=== PATIENT | female | born 1990 | race Two or more races ===

== ENCOUNTER 2017-08-21 07:27 | Emergency (ER) | payer BC ==
--- NOTE | 2017-08-21 08:06 | PDOC ---
History of Present Illness - General Chief Complaint: Vomiting/Diarrhea Stated Complaint: VOMITING Time Seen by Provider: 08/21/17 08:01 History Source: Patient Exam Limitations: No Limitations - History of Present Illness Initial Comments: 08/21/17 09:00 Patient is a 27-year-old female with no past medical history who presents emergency department today with nausea vomiting and diarrhea since 1 AM. Patient states that she woke up not feeling well. Pt. states that she ate a new chicken dish on Monday night that one of her friends brought over. Her significant other was also at the event but did not eat the chicken dish and has no symptoms. Denies recent antibiotic use, sick contacts, recent travel. Patient states that she [facility] and has not had a menstrual cycle since. Admits to upper abdominal pain and headache. Denies fevers, chills, sore throat, ear pain, cough, runny nose, chest pain, the, urgency, dysuria, hematuria. Patient last ate dinner last night. Past History - Travel Traveled outside of the country in the last 30 days: No Close contact w/someone who was outside of country & ill: No - Past Medical History Allergies/Adverse Reactions: Allergies Allergy/AdvReac Type Severity Reaction Status Date / Time No Known Allergies Allergy Verified 08/21/17 07:29 Home Medications: Ambulatory Orders Levothyroxine [Synthroid -] 125 mcg PO DAILY #30 tablet 07/19/17 Ondansetron [Zofran Odt -] 4 mg SL TID #10 od.tablet 08/21/17 CVA: No COPD: No Thyroid Disease: Yes - Suicide/Smoking/Psychosocial Hx Smoking History: Never smoked Have you smoked in the past 12 months: No Information on smoking cessation initiated: No Hx Alcohol Use: Yes (SOCIAL) Drug/Substance Use Hx: No Substance Use Type: None Review of Systems - Review of Systems Able to Perform ROS?: Yes Is the patient limited Iraqi proficient: No Constitutional: No: Chills, Fever, Night Sweats, Weakness HEENTM: No: Recent change in vision, Ear Pain, Nose Congestion, Throat Pain, Throat Swelling Respiratory: No: Cough, Shortness of Breath, Wheezing Cardiac (ROS): No: Chest Pain, Irregular Heart Rate, Palpitations, Syncope ABD/GI: Yes: Diarrhea, Nausea, Vomiting, Other (abdominal pain) : No: Burning, Dysuria, Frequency, Hematuria Neurological: Yes: Headache All Other Systems: Reviewed and Negative *Physical Exam - Vital Signs Last Vital Signs Temp Pulse Resp BP Pulse Ox 98.8 F 106 H 18 121/61 100 08/21/17 07:29 08/21/17 07:29 08/21/17 07:29 08/21/17 07:29 08/21/17 07:29 - Physical Exam Comments: 08/21/17 08:59 GENERAL: Well developed, well nourished. Awake and alert x3. No acute distress sitting on exam bed. HEENT: Normocephalic, atraumatic. PERRLA, EOMI. No conjunctival pallor. Sclera are non- icteric. Moist mucous membranes. Oropharynx is clear. NECK: Supple. Full ROM. No JVD. Carotid pulses 2+ and symmetric, without bruits. No thyromegaly. No lymphadenopathy. CARDIOVASCULAR: Regular rate and rhythm. No murmurs, rubs, or gallops. Distal pulses are 2+ and symmetric. PULMONARY: No evidence of respiratory distress. Lungs clear to auscultation bilaterally. No wheezing, rales or rhonchi. ABDOMINAL: TTP of epigastric region. Soft. Non-distended. No rebound or guarding. No organomegaly. Normoactive bowel sounds. (-) rovsing, obturator, psoas signs. (- ) Stevens's sign MUSCULOSKELETAL Normal range of motion at all joints. No bony deformities or tenderness. No CVA tenderness. EXTREMITIES: No cyanosis. No clubbing. No edema. No calf tenderness. SKIN: Warm and dry. Normal capillary refill. No rashes. No jaundice. NEUROLOGICAL: Alert, awake, appropriate. Cranial nerves 2-12 intact. No deficits to light touch and temperature in face, upper extremities and lower extremities. No motor deficits in the in face, upper extremities and lower extremities. Normoreflexic in the upper and lower extremities. Normal speech. Toes are down- going bilaterally. Gait is normal without ataxia. PSYCHIATRIC: Cooperative. Good eye contact. Appropriate mood and affect. ED Treatment Course - LABORATORY CBC & Chemistry Diagram: 08/21/17 10:12 08/21/17 09:05 Medical Decision Making - Medical Decision Making 08/21/17 09:02 Patient is a 27-year-old female with no past medical history who presents to the emergency department today with nausea vomiting and diarrhea since 1 AM. Hx positive for eating a chicken dish on Monday night. No red flags on exam. Stevens sign is negative. Given the onset of symptoms and the patient is in good health, this is most likely a viral stomach illness. However differential diagnosis included but not limited to , UTI. Less likely pancreatitis, cholecystitis. 1.CBC, CMP, lipase, PT/INR, UA, UC, urine 2.IV fluids, Zofran 3.reevaluate 08/21/17 10:57 Labs show elevated WBC with L shift. Lipase, bilirubin normal. Pt. afebrile in the department. most likely a bacterial gastroenteritis. Pt. reports nausea and pain better, but still with some nausea. Will give reglan at this time. 08/21/17 12:18 Pt states abdominal pain is gone after reglan. Tolerating PO. Will d/c pt at this time. *DC/Admit/Observation/Transfer Diagnosis at time of Disposition: Gastroenteritis - Discharge Dispostion Disposition: HOME Condition at time of disposition: Stable Admit: No - Referrals Referrals: Arnaldo Centeno MD [Staff Physician] - - Patient Instructions Printed Discharge Instructions: DI for Viral Gastroenteritis -- Adult Additional Instructions: You have a viral stomach infection. This should get better on its own in the next 24-48 hours. Please drink plenty of fluids. Eat a bland diet, including toast, plain rice, apple sauce, and bananas. You were prescribed zofran. You may take one pill every 8 hours as needed for nausea. Please follow up with your primary care doctor within the week. Return to the ED if your abdominal pain, nausea and vomiting get worse, if you feel light headed, dizzy or if you have any changes in your symptoms. - Post Discharge Activity Forms/Work/School Notes: Back to Work
[2017-08-21 08:16] VITALS: TEMP 98.8; BMI 24.7
[2017-08-21] MEDS ORDERED: ONDANSETRON 4 MG/2 ML VIAL IVPUSH ONE (08:20)
[2017-08-21] MEDS ORDERED: SODIUM CHLORIDE 1,000 ML IV STA (08:20)
[2017-08-21] MEDS ORDERED: ONDANSETRON 4 MG/2 ML VIAL ONE (08:27)
[2017-08-21 09:41] LABS: URINE APPEARANCE SLCLOUDY; URINE BILIRUBIN NEGATIVE (NEGATIVE); URINE BLOOD NEGATIVE (NEGATIVE); URINE COLOR YELLOW; URINE GLUCOSE (UA) NEGATIVE (NEGATIVE); URINE KETONE 2+ (NEGATIVE); URINE LEUK ESTERASE NEGATIVE (NEGATIVE); URINE NITRITE NEGATIVE (NEGATIVE); URINE PROTEIN NEGATIVE (NEGATIVE); URINE UROBILINOGEN NEGATIVE mg/dL (0.2-1.0)
[2017-08-21 09:45] LABS: ALBUMIN 3.7 g/dl (3.4-5.0); ALK PHOS 69 U/L (45-117); ANION GAP 6 (8-16); BILIRUBIN,TOTAL 0.6 mg/dL (0.2-1.0); CALCIUM 7.8 mg/dL (8.5-10.1); CO2 25 mmol/L (21-32); CREATININE 0.7 mg/dL (0.55-1.02); GLUCOSE,RANDOM 108 mg/dL (74-106); SGOT/AST 14 U/L (15-37); SGPT/ALT 21 U/L (12-78); TOT PROT 7.2 g/dl (6.4-8.2)
[2017-08-21 09:50] LABS: INR 1.15 (0.82-1.09)
[2017-08-21] MEDS ORDERED: KETOROLAC TROMETHAMINE 30 MG/1 ML VIAL IVPUSH ONE (10:16)
[2017-08-21 10:21] LABS: BASOPHIL 0.1 % (0-2.0); EOSINOPHIL 0.3 % (0-4.5); MCH 28.4 pg (25.7-33.7); MCHC 32.2 g/dl (32.0-36.0); MEAN CELL VOLUME 88.1 fl (80-96); MEAN PLT VOLUME 7.8 fl (7.5-11.1); NEUTROPHILS 96.1 % (42.8-82.8); PLATELET COUNT 282 K/MM3 (134-434); RDW 13.2 % (11.6-15.6); WHITE BLOOD COUNT 15.2 K/mm3 (4.0-10.0)
--- NOTE | 2017-08-21 10:27 | PDOC ---
*Physical Exam - Vital Signs Last Vital Signs Temp Pulse Resp BP Pulse Ox 98.8 F 106 H 18 121/61 100 08/21/17 07:29 08/21/17 07:29 08/21/17 07:29 08/21/17 07:29 08/21/17 07:29 ED Treatment Course - LABORATORY CBC & Chemistry Diagram: 08/21/17 10:12 08/21/17 09:05 - ADDITIONAL ORDERS Additional order review: Laboratory Results 08/21/17 08/21/17 08/21/17 09:05 09:05 09:05 PT with INR 13.00 H INR 1.15 H Sodium 143 Potassium 4.3 Chloride 112 H Carbon Dioxide 25 Anion Gap 6 L BUN 12 Creatinine 0.7 Creat Clearance w eGFR > 60 Random Glucose 108 H D Calcium 7.8 L Total Bilirubin 0.6 AST 14 L ALT 21 Alkaline Phosphatase 69 Total Protein 7.2 Albumin 3.7 Lipase 141 Urine Color Urine Appearance Urine pH Ur Specific [place] Urine Protein Urine Glucose (UA) Urine Ketones Urine Blood Urine Nitrite Urine Bilirubin Urine Urobilinogen Urine HCG, Qual 08/21/17 08/21/17 08:42 08:42 PT with INR INR Sodium Potassium Chloride Carbon Dioxide Anion Gap BUN Creatinine Creat Clearance w eGFR Random Glucose Calcium Total Bilirubin AST ALT Alkaline Phosphatase Total Protein Albumin Lipase Urine Color Yellow Urine Appearance Slcloudy Urine pH 5.0 Ur Specific [place] 1.032 Urine Protein Negative Urine Glucose (UA) Negative Urine Ketones 2+ H Urine Blood Negative Urine Nitrite Negative Urine Bilirubin Negative Urine Urobilinogen Negative Urine HCG, Qual Negative - Medications Given in the ED: ED Medications Discontinued Medications Generic Name Dose Route Start Last Admin Trade Name Martinezq PRN Reason Stop Dose Admin Sodium Chloride 1,000 mls @ 1,000 mls/hr 08/21/17 08:20 08/21/17 08:33 Normal Saline - IV 08/21/17 09:19 1,000 mls/hr ASDIR STA Administration Ondansetron HCl 4 mg 08/21/17 08:20 08/21/17 08:33 Zofran Injection IVPUSH 08/21/17 08:21 4 mg ONCE ONE Administration Medical Decision Making - Medical Decision Making 08/21/17 10:26 I reviewed the case of the mid-level practitioner and was available for consultation while in the emergency department *DC/Admit/Observation/Transfer Diagnosis at time of Disposition: Gastroenteritis - Discharge Dispostion Disposition: HOME Condition at time of disposition: Stable - Referrals Referrals: Arnaldo Centeno MD [Staff Physician] - - Patient Instructions Printed Discharge Instructions: DI for Viral Gastroenteritis -- Adult Additional Instructions: You have a viral stomach infection. This should get better on its own in the next 24-48 hours. Please drink plenty of fluids. Eat a bland diet, including toast, plain rice, apple sauce, and bananas. You were prescribed zofran. You may take one pill every 8 hours as needed for nausea. Please follow up with your primary care doctor within the week. Return to the ED if your abdominal pain, nausea and vomiting get worse, if you feel light headed, dizzy or if you have any changes in your symptoms. - Post Discharge Activity Forms/Work/School Notes: Back to Work
[2017-08-21] MEDS ORDERED: KETOROLAC TROMETHAMINE 30 MG/1 ML VIAL ONE (10:28)
[2017-08-21] MEDS ORDERED: METOCLOPRAMIDE HCL INJECTION 10 MG/2 ML VIAL IVPUSH ONE (10:46)
[2017-08-21] MEDS ORDERED: METOCLOPRAMIDE HCL INJECTION 10 MG/2 ML VIAL ONE ×2 (10:54→10:55)
[2017-08-21 12:35] VITALS: BP 110/68; PULSE 94
[2017-08-21 18:49] LABS: URINE LEUK ESTERASE NEGATIVE (NEGATIVE)
== END 2017-08-21 12:35 | disposition home or self-care (01) ==
LOC: JER 07:27
PROC: 3E033GC Introduction of Other Therapeutic Substance into Peripheral Vein, Percutaneous Approach (ICD-10-PCS; principal; 2017-08-21)
PROC: 3E0337Z Introduction of Electrolytic and Water Balance Substance into Peripheral Vein, Percutaneous Approach (ICD-10-PCS; 2017-08-21)
PROC: 3E0333Z Introduction of Anti-inflammatory into Peripheral Vein, Percutaneous Approach (ICD-10-PCS; 2017-08-21)
DX: K52.9 Noninfective gastroenteritis and colitis, unspecified (principal); E07.9 Disorder of thyroid, unspecified
CPT/HCPCS: 36415; 80053; 81003; 83690; 84703; 85025; 85610; 87086; 99283-25

== ENCOUNTER 2019-03-04 00:03 | Emergency (ER) | payer BC ==
[2019-03-04 00:38] VITALS: BP 99/60; PULSE 74; TEMP 98.6; BMI 26.5
--- NOTE | 2019-03-04 03:35 | PDOC ---
History of Present Illness - General Chief Complaint: Pain Stated Complaint: ABDOMINAL PAIN Time Seen by Provider: 03/04/19 03:21 History Source: Patient Exam Limitations: No Limitations - History of Present Illness Initial Comments: 03/04/19 03:29 Patient is a 29 year old female with h/o hypothyroid c/o upper abd pain x 2 weeks. Patient points to the epigastrium States the pain is in the epigastrium and is described as a continuous tightness 7/10, but get sharp with turning to the side, and pain radiates to the sides. Denies nausea, vomiting, dysuria. Took Prilosec with out relief of symptoms. Also c/o constipation x 4 days, has left flank pain and strains to go but nothing come out. Took no meds for the pain or the constipation. LMP 01/28/19 PSOCHX: occ etoh, neg cig, drugs ALL: NKDA GENERAL/CONSTITUTIONAL: No fever or chills. No weakness. No weight change.HEAD, EYES, EARS, NOSE AND THROAT: No change in vision. No ear pain or discharge. No sore throat. CARDIOVASCULAR: No chest pain or shortness of breath. RESPIRATORY: No cough, wheezing, or hemoptysis. GASTROINTESTINAL: No nausea, vomiting, diarrhea or constipation. No rectal bleeding. GENITOURINARY: No dysuria, frequency, or change in urination. MUSCULOSKELETAL: No joint or muscle swelling or pain. No neck or back pain. SKIN AND BREASTS: No rash or easy bruising. NEUROLOGIC: No headache, vertigo, loss of consciousness, or loss of sensation. PSYCHIATRIC: No depression or anxiety. ENDOCRINE: No increased thirst. No abnormal weight change. HEMATOLOGIC/LYMPHATIC: No anemia, easy bleeding, or history of blood clots. ALLERGIC/IMMUNOLOGIC: No hives or skin allergy. No latex allergy. GENERAL: The patient is awake, alert, and fully oriented, in mild distress. HEAD: Normal with no signs of trauma. EYES: Pupils equal, round and reactive to light, extraocular movements intact, sclera anicteric, conjunctiva clear. ENT: Ears normal, nares patent, oropharynx clear without exudates. Moist mucous membranes. NECK: Normal range of motion, supple without lymphadenopathy, JVD, or masses. LUNGS: Breath sounds equal, clear to auscultation bilaterally. No wheezes, and no crackles. HEART: Regular rate and rhythm, normal S1 and S2 without murmur, rub. ABDOMEN: Soft, (+) tenderness to the epigastrium > RUQ& LUQ, normoactive bowel sounds. No guarding, no rebound. No masses. EXTREMITIES: Normal range of motion, no edema. No clubbing or cyanosis. No cords, erythema, or tenderness. NEUROLOGICAL: Cranial nerves II through XII grossly intact. Normal speech, normal gait. PSYCH: Normal mood, normal affect. SKIN: Warm, Dry, normal turgor, no rashes or lesions noted. Past History - Past Medical History Allergies/Adverse Reactions: Allergies Allergy/AdvReac Type Severity Reaction Status Date / Time No Known Allergies Allergy Verified 03/04/19 00:38 Home Medications: Ambulatory Orders Levothyroxine [Synthroid -] 125 mcg PO DAILY #30 tablet 07/19/17 Ondansetron [Zofran Odt -] 4 mg SL TID #10 od.tablet 08/21/17 predniSONE [Deltasone -] 40 mg PO DAILY #6 tablet 12/15/17 CVA: No COPD: No Thyroid Disease: Yes - Immunization History Immunization Up to Date: Yes - Suicide/Smoking/Psychosocial Hx Smoking History: Never smoked Have you smoked in the past 12 months: No Hx Alcohol Use: No Drug/Substance Use Hx: No Substance Use Type: None *Physical Exam - Vital Signs Last Vital Signs Temp Pulse Resp BP Pulse Ox 98.6 F 74 18 99/60 99 03/04/19 00:36 03/04/19 00:36 03/04/19 00:36 03/04/19 00:36 03/04/19 00:36 ED Treatment Course - LABORATORY CBC & Chemistry Diagram: 03/04/19 03:49 03/04/19 03:49 Medical Decision Making - Medical Decision Making 03/04/19 03:29 Patient is a 29 year old female with h/o hypothyroid c/o upper abd pain x 2. States the pain is a tightness 7/10, constant with get sharp with turning to the side. Denies nausea, vomiting, dysuria. Took Prilosec with out relief of symptoms. Also c/o constipation x 4 days, has left flank pain and strains to go but nothing come out. Took no meds for the pain or the constipation. DDX: Cholecystitis/cholelithiasis, pancreatitis, gastritis Will send labs CBC and basic liver enzymes and pancreatic enzymes Pepcid, Toradol, Side ultrasound done which shows ? Gallbladder wall thickening, sludge. Will wait for chemistry. 03/04/19 05:31 Laboratory Tests 03/04/19 03/04/19 03:49 03:49 WBC 8.8 Hgb 13.6 Hct 41.5 Plt Count 285 Sodium 138 Potassium 4.5 Chloride 106 Carbon Dioxide 27 Anion Gap 5 L BUN 13.8 Creatinine 0.8 Random Glucose 89 Total Bilirubin 0.4 AST 18 ALT 25 Alkaline Phosphatase 88 Lipase 441 H 03/04/19 05:34 Pancreatic enzymes noted to be elevated will send patient for a ultrasound of the abdomen rule out pancreatitis, cholecystitis, pancreatic pseudocyst With endorsed to the day team pending ultrasound. *DC/Admit/Observation/Transfer Diagnosis at time of Disposition: Abdominal pain Qualifiers: Abdominal location: unspecified location Qualified Code(s): R10.9 - Unspecified abdominal pain - Discharge Dispostion Condition at time of disposition: Stable - Referrals - Patient Instructions - Post Discharge Activity
[2019-03-04] MEDS ORDERED: FAMOTIDINE 20 MG/50 ML IVPB 20 MG/50 ML MG IVPB ONE ×2 (03:40→03:50)
[2019-03-04] MEDS ORDERED: SODIUM CHLORIDE 0.9% 500 ML INFUS.BAG IV ONE (03:47)
[2019-03-04 04:51] LABS: HEMATOCRIT 41.5 % (32.4-45.2); HEMOGLOBIN 13.6 GM/dL (10.7-15.3); LYMPH % 24.2 % (8-40); MCH 29.5 pg (25.7-33.7); MCHC 32.8 g/dl (32.0-36.0); MEAN PLT VOLUME 8.6 fl (7.5-11.1); MONO % 9.7 % (3.8-10.2); NEUT % 63.1 % (42.8-82.8); PLATELET COUNT 285 K/MM3 (134-434); RBC 4.61 M/mm3 (3.60-5.2); RDW 15.1 % (11.6-15.6); WHITE BLOOD COUNT 8.8 K/mm3 (4.0-10.0)
[2019-03-04] MEDS ORDERED: KETOROLAC TROMETHAMINE 30 MG/1 ML VIAL IVPUSH ONE (05:15)
[2019-03-04 05:22] LABS: BILIRUBIN,TOTAL 0.4 mg/dL (0.2-1); BLOOD UREA NITROGEN 13.8 mg/dL (7-18); CALCIUM 8.8 mg/dL (8.5-10.1); CREATININE 0.8 mg/dL (0.55-1.3); POTASSIUM 4.5 mmol/L (3.5-5.1); TOT PROT 8.2 g/dl (6.4-8.2)
[2019-03-04 05:27] LABS: PH,URINE 5.5 (5.0-8.0); URINE APPEARANCE CLEAR; URINE BILIRUBIN NEGATIVE (NEGATIVE); URINE COLOR YELLOW; URINE GLUCOSE (UA) NEGATIVE (NEGATIVE); URINE KETONE NEGATIVE (NEGATIVE); URINE LEUK ESTERASE NEGATIVE (NEGATIVE); URINE NITRITE NEGATIVE (NEGATIVE); URINE PROTEIN NEGATIVE (NEGATIVE); URINE UROBILINOGEN 0.2 mg/dL (0.2-1.0)
[2019-03-04 05:32] LABS: HCG,QUALITATIVE URINE Negative
[2019-03-04] MEDS ORDERED: KETOROLAC TROMETHAMINE 30 MG/1 ML VIAL ONE (05:37)
--- NOTE | 2019-03-04 07:36 | PDOC ---
*Physical Exam - Vital Signs Last Vital Signs Temp Pulse Resp BP Pulse Ox 98.6 F 74 18 99/60 99 03/04/19 00:36 03/04/19 00:36 03/04/19 00:36 03/04/19 00:36 03/04/19 00:36 - Physical Exam General Appearance: Yes: Appropriately Dressed. No: Apparent Distress HEENT: positive: Normal Voice Neck: positive: Supple Respiratory/Chest: negative: Respiratory Distress Gastrointestinal/Abdominal: positive: Normal Bowel Sounds, Soft. negative: Tender, Distended, Guarding, Rebound Musculoskeletal: negative: CVA Tenderness Integumentary: positive: Dry, Warm Neurologic: positive: Fully Oriented, Alert, Normal Mood/Affect ED Treatment Course - LABORATORY CBC & Chemistry Diagram: 03/04/19 03:49 03/04/19 03:49 - ADDITIONAL ORDERS Additional order review: Laboratory Results 03/04/19 03/04/19 03:49 03:30 Sodium 138 Potassium 4.5 Chloride 106 Carbon Dioxide 27 Anion Gap 5 L BUN 13.8 Creatinine 0.8 Est GFR (CKD-EPI)AfAm 114.66 Est GFR (CKD-EPI)NonAf 98.93 Random Glucose 89 Calcium 8.8 Total Bilirubin 0.4 AST 18 ALT 25 Alkaline Phosphatase 88 Total Protein 8.2 Albumin 4.0 Total Amylase 75 Lipase 441 H Urine Color Yellow Urine Appearance Clear Urine pH 5.5 Ur Specific [place] 1.035 Urine Protein Negative Urine Glucose (UA) Negative Urine Ketones Negative Urine Blood Negative Urine Nitrite Negative Urine Bilirubin Negative Urine Urobilinogen 0.2 Ur Leukocyte Esterase Negative Urine HCG, Qual Negative 03/04/19 03:49 RBC 4.61 MCV 90.0 MCHC 32.8 RDW 15.1 D MPV 8.6 D Neutrophils % 63.1 D Lymphocytes % 24.2 D Monocytes % 9.7 D Eosinophils % 2.0 D Basophils % 1.0 D - Medications Given in the ED: ED Medications Discontinued Medications Generic Name Dose Route Start Last Admin Trade Name Freq PRN Reason Stop Dose Admin Famotidine/Sodium Chloride 20 mg in 50 mls @ 100 mls/hr 03/04/19 03:40 03:54 Pepcid 20 Mg Premixed Ivpb - IVPB 03/04/19 04:09 100 mls/hr ONCE ONE Administration Ketorolac Tromethamine 30 mg 03/04/19 05:15 03/04/19 05:40 Toradol Injection - IVPUSH 03/04/19 05:16 30 mg ONCE ONE Administration Sodium Chloride 500 ml 03/04/19 03:47 03/04/19 03:54 Normal Saline - IV 03/04/19 03:48 500 ml ONCE ONE Administration Medical Decision Making - Medical Decision Making 03/04/19 07:29 29 yo F, no sig hx, p/w epigastric pain x > 1 week, "tight" in nature, constant , 7/10, only worse w/ certain movements. No a/w food. No excessive belching n/v or diarrhea. Does report no BM x 5 days. No BRBPR, rectal pain/pressure or melena. Denies excessive ETOH or NSAIDs use. No prior episode. Labs only remarkable for mildly elevated lipase at 441. XR w/ constipation. US pending. Has since been given toradol and pepcid w/ some improvement 03/04/19 11:13 US read as possible fatty liver but no gallstones or e/o acute zohaib. Pt states pain now 210 and was able to to po here w/ benign abd on rpt exam. Patient now reports that she already has a GI appointment for this Monday for an endoscopy. Will with GI cocktail including MiraLAX for constipation. Reasons to return d/w pt *DC/Admit/Observation/Transfer Diagnosis at time of Disposition: Abdominal pain Qualifiers: Abdominal location: unspecified location Qualified Code(s): R10.9 - Unspecified abdominal pain - Discharge Dispostion Disposition: HOME Condition at time of disposition: Improved - Prescriptions Prescriptions: Famotidine [Pepcid] 20 mg PO BID #28 tablet Mag Hydrox/Al Hydrox/Simeth [Mylanta Suspension -] 30 ml PO Q6H #1 bottle Polyethylene Glycol 3350 [Miralax (For Daily Use) -] 17 gm PO DAILY #1 bottle - Referrals - Patient Instructions Printed Discharge Instructions: DI for Epigastric Pain Additional Instructions: The cause of your abdominal pain is unclear at this time but there was constipation seen on your Xray Please take medications as prescribed and follow up with your GI doctor as already scheduled - Post Discharge Activity Forms/Work/School Notes: Back to Work
== END 2019-03-04 11:01 | disposition home or self-care (01) ==
LOC: JER 00:03
PROC: 3E033GC Introduction of Other Therapeutic Substance into Peripheral Vein, Percutaneous Approach (ICD-10-PCS; principal; 2019-03-04)
PROC: 3E0333Z Introduction of Anti-inflammatory into Peripheral Vein, Percutaneous Approach (ICD-10-PCS; 2019-03-04)
DX: R10.9 Unspecified abdominal pain (principal); K59.00 Constipation, unspecified; R74.8 Abnormal levels of other serum enzymes
CPT/HCPCS: 36415; 74019-TC-FY; 76700-TC; 80053; 81003; 82150; 83690; 84703; 85025; 99283-25